=== PATIENT | female | born 1935 | race Caucasian/White ===

== ENCOUNTER 2016-11-27 22:05 | Observation (INO) | payer MEDICARE ==
[~2016-11-27] VITALS: Ht 170.2 cm; Wt 63.5 kg
[~2016-11-27 22:05] MED LIST: ASPI81TA82 PO; DILT120C49 PO; DOCU1CAP39 PO; MONT10TA2 PO; NORC7.5T PO; OMEG100037 PO; TAB-TAB PO; VITA-8 PO; VITA20003 PO; WALKER STANDARD
[2016-11-27 22:22] VITALS: BP 146/81; PULSE 74; RESP 18; TEMP 98.8; O2SAT 98
[2016-11-28] VITALS (10 sets, daily range): BP systolic 131–148; BP diastolic 51–70; PULSE 61–77; RESP 18–20; TEMP 97.9–98.1; O2SAT 95–99
[2016-11-28] MEDS ORDERED: LIDOCAINE HCL 1% PF 30 ML VIAL INFIL ONE (03:00)
[2016-11-28] MEDS ORDERED: SODIUM CHLORIDE 0.9% FLUSH 5 ML FLUSH IVF PRN ×2 (03:00→06:00)
[2016-11-28] MEDS ORDERED: TETANUS/DIPHTHERIA TOXOID ADULT 0.5 ML VIAL IM ONE (03:30)
[2016-11-28 03:40] LABS: AUTOMATED NEUTROPHIL # 6.3 TH/MM3 (1.8-7.7); BASOPHIL # 0.1 TH/MM3 (0-0.2); BASOPHIL % 0.7 % (0.0-2.0); EOSINOPHIL # 0.1 TH/MM3 (0-0.4); EOSINOPHIL % 1.5 % (0.0-4.0); HEMATOCRIT 39.4 % (35.0-46.0); HEMO FLAGS DIFF FINAL; LYMPH % 15.8 % (9.0-44.0); LYMPHOCYTE # 1.4 TH/MM3 (1.0-4.8); MEAN CELL VOLUME 94.2 FL (80.0-100.0); MEAN CORPUSCULAR HEMOGLOBIN 31.6 PG (27.0-34.0); MEAN CORPUSCULAR HGB CONC 33.5 % (32.0-36.0); MONO % 9.2 % (0.0-8.0); NEUT % 72.8 % (16.0-70.0); PLATELET COUNT 248 TH/MM3 (150-450); RED BLOOD COUNT 4.18 MIL/MM3 (4.00-5.30); RED CELL DISTRIBUTION WIDTH 12.9 % (11.6-17.2); WHITE BLOOD COUNT 8.7 TH/MM3 (4.0-11.0)
--- NOTE | 2016-11-28 03:43 | PD ---
HPI Chief Complaint: Fall Time Seen by Provider: 02:58 Travel History International Travel<30 days: No Contact w/Intl Traveler<30days: No Traveled to known affect area: No History of Present Illness HPI 81-year-old female presents to the emergency department by private transportation after syncopal episode. Patient states last evening she was in her usual state of health and then found herself on the floor with a scalp laceration. Patient is unsure how long she was unconscious. Patient states she had loss of bladder or bowel function. Patient had soiled her clothes. Patient was able to contact her neighbor who came to her assistance and EMS was called to help the patient up off the floor. A dressing was applied to the laceration site for the posterior scalp and patient was brought to the emergency department by private vehicle. Patient takes an aspirin and vitamins daily but takes no other medications. PFSH Past Medical History Narrative Medical Arthritis atrial fibrillation depression migraine partial colectomy appendectomy cholecystectomy upper lobectomy tonsillectomy left hip surgery alcohol use no tobacco use nursing notes reviewed Arthritis: Yes Atrial Fibrillation: Yes Anxiety: No Depression: Yes Cancer: No Cardiovascular Problems: No Diminished Hearing: Yes (SLIGHT HEARING LOSS) Endocrine: No Genitourinary: No Musculoskeletal: Yes Neurologic: Yes Psychiatric: Yes Reproductive: No Respiratory: No Migraines: Yes Menopausal: Yes Past Surgical History Abdominal Surgery: Yes (REMOVED 2 FT COLON) Appendectomy: Yes Cholecystectomy: Yes Pacemaker: No Thoracic Surgery: Yes (upper right lobe removed) Tonsillectomy: Yes Other Surgery: Yes (left hip) Social History Alcohol Use: Yes Tobacco Use: No Substance Use: No Allergies-Medications (Allergen,Severity, Reaction): Coded Allergies: Cipro (Unverified Allergy, Severe, 11/28/16) Levofloxacin (Unverified Allergy, Severe, 11/28/16) Reported Meds & Prescriptions Reported Meds & Active Scripts Active Reported Vitamin D (Cholecalciferol) 1,000 Unit Tab 2,000 Units PO DAILY Vitamin C (Ascorbic Acid) 1,000 Mg Tab 1,000 Mg PO Aspirin Children's (Aspirin) 81 Mg Chew 81 Mg CHEW DAILY Review of Systems Except as stated in HPI: all other systems reviewed are Neg General / Constitutional: No: Fever (Her), Chills HENT: No: Headaches, Congestion, Neck Stiffness, Neck Pain Cardiovascular: Positive: Syncope, No: Chest Pain or Discomfort Respiratory: No: Cough Gastrointestinal: No: Nausea, Vomiting, Abdominal Pain Genitourinary: No: Decreased Urinary Output Musculoskeletal: No: Myalgias, Arthralgias Skin: No Rash Neurologic: Positive: Syncope, No: Weakness, Dizziness Psychiatric: No: Anxiety, Depression Hematologic/Lymphatic: No: Lymph Node Enlargement Physical Exam Narrative GENERAL: Well-developed well-nourished female in acute distress no respiratory distress GCS 15 SKIN: Warm and dry. HEAD: Atraumatic. Normocephalic. 6 cm linear scar posterior scalp laceration no bony abnormality or soft tissue swelling/hematoma. EYES: Pupils equal and round. No scleral icterus. No injection or drainage. ENT: No nasal bleeding or discharge. Mucous membranes pink and moist. No hemotympanum bilaterally. NECK: Trachea midline. No JVD. No midline tenderness to direct palpation on the cervical spine no bony step-off. CARDIOVASCULAR: Regular rate and rhythm. RESPIRATORY: No accessory muscle use. Clear to auscultation. Breath sounds equal bilaterally. GASTROINTESTINAL: Abdomen soft, non-tender, nondistended. Hepatic and splenic margins not palpable. MUSCULOSKELETAL: Extremities without clubbing, cyanosis, or edema. No obvious deformities. NEUROLOGICAL: Awake and alert. No obvious cranial nerve deficits. Motor grossly within normal limits. Five out of 5 muscle strength in the arms and legs. Normal speech. PSYCHIATRIC: Appropriate mood and affect; insight and judgment normal. Data Data Last Documented VS Vital Signs Date Time Temp Pulse Resp B/P Pulse Ox O2 Delivery O2 Flow Rate FiO2 11/28/16 04:25 61 20 137/60 96 11/28/16 04:13 Nasal Cannula 2 11/27/16 22:22 98.8 Orders Basic Metabolic Panel (Bmp) (11/28/16 02:58) Complete Blood Count With Diff (11/28/16 02:58) Prothrombin Time / Inr (Pt) (11/28/16 02:58) Act Partial Throm Time (Ptt) (11/28/16 02:58) Type And Screen (11/28/16 02:58) Alcohol (Ethanol) (11/28/16 02:58) Urinalysis - C+S If Indicated (11/28/16 02:58) Ct Brain W/O Iv Contrast(Rout) (11/28/16 02:58) Ct Cerv Spine W/O Contrast (11/28/16 02:58) Iv Access Insert/Monitor (11/28/16 02:58) Ecg Monitoring (11/28/16 02:58) Oximetry (11/28/16 02:58) Oxygen Administration (11/28/16 02:58) Sodium Chloride 0.9% Flush (Ns Flush) (11/28/16 03:00) Electrocardiogram (11/28/16 ) Troponin I (11/28/16 02:58) Magnesium (Mg) (11/28/16 02:58) Wound Care (11/28/16 02:58) Lidocaine Pf 1% Inj (Xylocaine-Mpf 1% In (11/28/16 03:00) Tetanus/Diphtheria Tox Adult (Tetanus/Di (11/28/16 03:30) Place In Observation (11/28/16 ) Vital Signs (Adult) Q4H (11/28/16 05:50) Neuro Checks Q4H (11/28/16 05:50) Activity Oob With Assistance (11/28/16 05:50) Vp Talent Management / Telemetry .CONTINUOUS (11/28/16 05:50) Diet Heart Healthy (11/28/16 Breakfast) Sodium Chloride 0.9% Flush (Ns Flush) (11/28/16 06:00) Sodium Chloride 0.9% Flush (Ns Flush) (11/28/16 09:00) Pt Request For Service (11/28/16 05:50) Enoxaparin Inj (Lovenox Inj) (11/28/16 09:00) Naloxone Inj (Narcan Inj) (11/28/16 06:00) Admit Order (Ed Use Only) (11/28/16 ) ^ Saline Lock (11/28/16 05:51) Resp Oxygen Roldan C Titrat 1-4 L (11/28/16 ) ^ Notify Dr: Other (11/28/16 05:51) Sodium Chloride 0.9% Flush (Ns Flush) (11/28/16 09:00) Sodium Chloride 0.9% Flush (Ns Flush) (11/28/16 06:00) Aspirin Chew (Aspirin Chew) (11/28/16 09:00) Labs Laboratory Tests Test 11/28/16 03:30 White Blood Count 8.7 TH/MM3 Red Blood Count 4.18 MIL/MM3 Hemoglobin 13.2 GM/DL Hematocrit 39.4 % Mean Corpuscular Volume 94.2 FL Mean Corpuscular Hemoglobin 31.6 PG Mean Corpuscular Hemoglobin 33.5 % Concent Red Cell Distribution Width 12.9 % Platelet Count 248 TH/MM3 Mean Platelet Volume 8.2 FL Neutrophils (%) (Auto) 72.8 % Lymphocytes (%) (Auto) 15.8 % Monocytes (%) (Auto) 9.2 % Eosinophils (%) (Auto) 1.5 % Basophils (%) (Auto) 0.7 % Neutrophils # (Auto) 6.3 TH/MM3 Lymphocytes # (Auto) 1.4 TH/MM3 Monocytes # (Auto) 0.8 TH/MM3 Eosinophils # (Auto) 0.1 TH/MM3 Basophils # (Auto) 0.1 TH/MM3 CBC Comment DIFF FINAL Differential Comment Prothrombin Time 11.0 SEC Prothromb Time International 1.0 RATIO Ratio Activated Partial 27.7 SEC Thromboplast Time Sodium Level 135 MEQ/L Potassium Level 3.8 MEQ/L Chloride Level 98 MEQ/L Carbon Dioxide Level 26.0 MEQ/L Anion Gap 11 MEQ/L Blood Urea Nitrogen 7 MG/DL Creatinine 0.61 MG/DL Estimat Glomerular Filtration 94 ML/MIN Rate Random Glucose 85 MG/DL Calcium Level 8.7 MG/DL Magnesium Level 1.6 MG/DL Troponin I 0.02 NG/ML Ethyl Alcohol Level 119 MG/DL Blood Type O POSITIVE Antibody Screen NEGATIVE MDM Medical Decision Making Medical Screen Exam Complete: Yes Emergency Medical Condition: Yes Medical Record Reviewed: Yes Interpretation(s) EKG: Normal sinus rhythm rate 69 first-degree AV block no acute ST elevation or injury pattern change noted nonspecific T-wave septally with age-indeterminate QS septally CBC & BMP Diagram 11/28/16 03:[address] 11/28/16257 Signed Impressions: Service Date/Time: Monday, November 28, 2016 03:55 - CONCLUSION: No significant change has occurred. Neil Queen MD Cervical Spine CT 11/28/16257 Signed Impressions: Service Date/Time: Monday, November 28, 2016 03:55 - CONCLUSION: No fracture or listhesis. Neil Queen MD Serum alcohol: 119, elevated Troponin I: 0.02 Differential Diagnosis Syncope, arrhythmia, seizure, alcohol consumption/intoxication, electrolyte disturbance, ACS, ICH, CHI, laceration Narrative Course Patient placed on monitor IV access obtained specimens collected and sent for resulting tetanus status updated Imaging studies resulted CT brain noncontrast reveals no bleed or acute intracranial process or fracture; CT cervical spine reveals no acute bony injury Lab values grossly within normal range except for serum alcohol of 119, elevated Laceration repaired with jasmyne Plan will be to admit patient for observation to vomit monitor for arrhythmia serial enzymes and require EEG Procedures Procedure Narrative LACERATION LOCATION: Posterior scalp LENGTH: 6 cm NUMBER OF STITCHES/JASMYNE: 9 REPAIR: The area of the laceration was prepped with Betadine and sterilely draped. The laceration was infiltrated with 1% lidocaine plain. The wound was copiously irrigated and explored without evidence of foreign body, tendon injury or neurovascular injury. The wound was closed using jasmyne. This was a single layer repair. A sterile dressing was applied. The patient was advised to keep the dressing clean and dry. Patient tolerated the procedure well. Tetanus status updated EKG Prior to Arrival: No Physician Communication Physician Communication call placed to [facility] service for OBS admission Diagnosis Primary Impression: Syncope Qualified Code: R55 - Syncope, unspecified syncope type Additional Impressions: Closed head injury Qualified Code: S09.90XA - Closed head injury, initial encounter Occipital scalp laceration Qualified Code: S01.01XA - Occipital scalp laceration, initial encounter Alcohol ingestion Admitting Information Admitting Physician Requests: Observation Celi Richardson MD Nov 28, 2016 03:43
[2016-11-28 03:49] LABS: POTASSIUM 3.8 MEQ/L (3.5-5.1)
[2016-11-28 03:52] LABS: APTT (PATIENT) 27.7 SEC (24.3-30.1); MAGNESIUM 1.6 MG/DL (1.5-2.5)
--- NOTE | 2016-11-28 04:26 | RADHPO ---
EXAM DATE/TIME: 11/28/2016 03:55 [facility] COMPARISON: CT BRAIN W/O CONTRAST, February 18, 2015, 12:38. INDICATIONS : Trauma. Fall. Laceration back of head. RADIATION DOSE: 60.12 CTDIvol (mGy) MEDICAL HISTORY : None SURGICAL HISTORY : Lobectomy. Right shoulder reconstruction. ENCOUNTER: Initial ACUITY: 1 day PAIN SCALE: 0/10 LOCATION: Bilateral occipital TECHNIQUE: Multiple contiguous axial images were obtained of the head. Using automated exposure control and adj ustment of the mA and/or kV according to patient size, radiation dose was kept as low as reasonably a chievable to obtain optimal diagnostic quality images. FINDINGS: There is atrophy and patchy white matter disease moderate severity. No signs of acute infarct, hemorr bozena, or mass. No fractures. CONCLUSION: No significant change has occurred. Neil Queen MD on November 28, 2016 at 4:24 Board Certified Radiologist. This report was verified electronically.
[2016-11-28] MEDS ORDERED: VITA10007 PO (04:34)
[2016-11-28] MEDS ORDERED: ASPI81CH7 CHEW (04:34)
[2016-11-28] MEDS ORDERED: VITA100064 PO (04:34)
--- NOTE | 2016-11-28 04:37 | RADHPO ---
EXAM DATE/TIME: 11/28/2016 03:55 [facility] COMPARISON: CHEST SINGLE AP, March 12, 2016, 8:48. INDICATIONS : Trauma. Fall. Laceration back of head. RADIATION DOSE: 22.78 CTDIvol (mGy) MEDICAL HISTORY : None SURGICAL HISTORY : Lobectomy. Right shoulder reconstruction. ENCOUNTER: Initial ACUITY: 1 day PAIN SCALE: 0/10 LOCATION: Bilateral neck TECHNIQUE: Volumetric scanning of the cervical spine was performed. Multiplanar reconstructions in the sagittal, coronal and oblique axial planes were performed. Using automated exposure control and adjustment o f the mA and/or kV according to patient size, radiation dose was kept as low as reasonably achievable to obtain optimal diagnostic quality images. FINDINGS: There is moderate multilevel facet hypertrophy. Severe disc space narrowing at C5-6 and C6-7 with mul tilevel osteophytosis. No compression deformity or prevertebral soft tissue swelling. The odontoid pr ocess is intact. Multilevel uncovertebral hypertrophy. At C5-6 mild canal narrowing secondary to mild diffuse disc osteophyte complex. No fractures are seen. There are emphysematous changes and fibrotic changes at the apices. Post surgical changes right lung apex. CONCLUSION: No fracture or listhesis. Neil Queen MD on November 28, 2016 at 4:33 Board Certified Radiologist. This report was verified electronically.
[2016-11-28] MEDS ORDERED: NALOXONE HCL 0.4 MG/ML AMP IV PRN (06:00)
[2016-11-28] MEDS ORDERED: SODIUM CHLORIDE 0.9% FLUSH 5 ML FLUSH FLUSH PRN (06:00)
[2016-11-28 06:07] LABS: BLOOD, URINE SMALL (NEG); GLUCOSE,URINE NEG (NEG); KETONE, URINE NEG (NEG); NITRITE,URINE NEG (NEG)
[2016-11-28 06:13] LABS: METHOD OF COLLECTION CLEAN CATCH; RBC, URINE 0-3 /hpf (0-3); SQUAMOUS EPITHELIAL CELL URINE 0-5 /hpf (0-5); URINE COLOR STRAW (YELLW/STRAW)
[2016-11-28 06:14] LABS: COMMENT (UR) CULT NOT INDICATED; CULTURE IF INDICATED CULT NOT INDICATED
[2016-11-28] MEDS ORDERED: ASPIRIN 81 MG CHEW TAB CHEW SCH (09:00)
[2016-11-28] MEDS ORDERED: SODIUM CHLORIDE 0.9% FLUSH 5 ML FLUSH IVF SCH (09:00)
[2016-11-28] MEDS ORDERED: SODIUM CHLORIDE 0.9% FLUSH 5 ML FLUSH FLUSH SCH (09:00)
[2016-11-28] MEDS ORDERED: ENOXAPARIN SODIUM 40 MG/0.4 ML SYRINGE SQ SCH (09:00)
[2016-11-28] MEDS ORDERED: ACETAMINOPHEN 325 MG TAB PO PRN (11:00)
--- NOTE | 2016-11-28 16:05 | HHI.HP ---
[facility] Brooklynn Abdi MD Admission Diagnosis Syncope; h/o afib; alcohol ingestion Diagnoses: (1) Syncope Diagnosis: Principal (2) Alcohol intoxication Diagnosis: Principal Chief Complaint: fell Travel History International Travel<30 Days: No Contact w/Intl Traveler <30 Da: No Traveled to Known Affected Are: No History of Present Illness 81-year-old female with history of lung cancer, post procedural A. fib , and arthritis presents with syncope. Patient states she was walking in the hood last night and she fell. Denies tripping. Admits to loss of consciousness. She denies any confusion afterward. She denies any dizziness or lightheadedness prior to syncope. She states this happened twice before and was not associated with alcohol use, but states she had 2 glasses of wine last night. Patient was noted to have an alcohol level of 119. Patient denies any chest pain or shortness of breath associated with syncope. Denies any recent fevers, chills, or cough. She has a history of postprocedural A. fib for which she was evaluated by Dr. Allen. She last saw Dr. Allen 6 months ago and has had a prior stress test. She states she is supposed to see him next week. Review of Systems Other ROS 10 negative unless otherwise indicated positive in history of present illness. Past Family Social History Past Medical History Atrial fibrillation Lung cancer 2014 Depression Migraine Arthritis Past Surgical History Partial colectomy Appendectomy Cholecystectomy R upper lobectomy tonsillectomy left hip replacement Reported Medications Vitamin D (Cholecalciferol) 1,000 Unit Tab 2,000 Units PO DAILY Vitamin C (Ascorbic Acid) 1,000 Mg Tab 1,000 Mg PO Aspirin Children's (Aspirin) 81 Mg Chew 81 Mg CHEW DAILY Allergies: Coded Allergies: Cipro (Unverified Allergy, Severe, 11/28/16) Levofloxacin (Unverified Allergy, Severe, 11/28/16) Family History Mother: Breast cancer. Father: in an accident. Social History Patient states she smoked cigarettes for 25 years, quit 10 years ago. Patient states she drank 2 glasses of wine last night. Physical Exam Vital Signs Vital Signs Date Time Temp Pulse Resp B/P Pulse Ox O2 Delivery O2 Flow Rate FiO2 11/28/16 12:45 74 18 138/51 98 Room Air 11/28/16 12:01 18 11/28/16 09:39 67 18 147/67 96 Room Air 11/28/16 09:28 65 145/64 142/69 147/67 11/28/16 07:19 97.9 77 18 135/59 96 Room Air 11/28/16 07:14 78 18 96 Room Air 11/28/16 06:13 98.1 68 20 131/64 95 11/28/16 05:57 96 Nasal Cannula 2.00 11/28/16 04:25 61 20 137/60 96 11/28/16 04:17 66 20 97 11/28/16 04:13 65 20 137/60 97 11/28/16 04:13 98 Nasal Cannula 2 11/28/16 03:31 68 20 148/67 98 11/28/16 02:30 66 20 141/70 99 11/27/16 22:22 98.8 74 18 146/81 98 Physical Exam GENERAL: This is a pleasant well-nourished, well-developed patient, in no apparent distress. SKIN: Mild ecchymosis noted to the right elbow region. HEAD: Normocephalic. EYES: No scleral icterus. No injection or drainage. NECK: Trachea midline. CARDIOVASCULAR: Regular rate and rhythm. RESPIRATORY: Clear to auscultation. Breath sounds equal bilaterally. No wheezes , rales, or rhonchi. GASTROINTESTINAL: Abdomen soft, non-tender, nondistended. MUSCULOSKELETAL: No lower extremity edema bilaterally. NEUROLOGICAL: Awake and alert. Motor grossly within normal limits. Normal speech. PSYCHIATRIC: Normal mood and affect. Insight and judgement normal. Laboratory Laboratory Tests Test 11/28/16 11/28/16 03:30 05:55 White Blood Count 8.7 Red Blood Count 4.18 Hemoglobin 13.2 Hematocrit 39.4 Mean Corpuscular Volume 94.2 Mean Corpuscular Hemoglobin 31.6 Mean Corpuscular Hemoglobin 33.5 Concent Red Cell Distribution Width 12.9 Platelet Count 248 Mean Platelet Volume 8.2 Neutrophils (%) (Auto) 72.8 Lymphocytes (%) (Auto) 15.8 Monocytes (%) (Auto) 9.2 Eosinophils (%) (Auto) 1.5 Basophils (%) (Auto) 0.7 Neutrophils # (Auto) 6.3 Lymphocytes # (Auto) 1.4 Monocytes # (Auto) 0.8 Eosinophils # (Auto) 0.1 Basophils # (Auto) 0.1 CBC Comment DIFF FINAL Differential Comment Prothrombin Time 11.0 Prothromb Time International 1.0 Ratio Activated Partial 27.7 Thromboplast Time Sodium Level 135 Potassium Level 3.8 Chloride Level 98 Carbon Dioxide Level 26.0 Anion Gap 11 Blood Urea Nitrogen 7 Creatinine 0.61 Estimat Glomerular Filtration 94 Rate Random Glucose 85 Calcium Level 8.7 Magnesium Level 1.6 Troponin I 0.02 Ethyl Alcohol Level 119 Blood Type O POSITIVE Antibody Screen NEGATIVE Urine Collection Type CLEAN CATCH Urine Color STRAW Urine Turbidity CLEAR Urine pH 6.0 Urine Specific [place] 1.004 Urine Protein NEG Urine Glucose (UA) NEG Urine Ketones NEG Urine Occult Blood SMALL Urine Nitrite NEG Urine Bilirubin NEG Urine Leukocyte Esterase NEG Urine RBC 0-3 Urine WBC Urine Squamous Epithelial 0-5 Cells Microscopic Urinalysis Comment CULT NOT INDICATED Result Diagram: 11/28/1632911/28/16329 Imaging Last Impressions Head CT 11/28/16257 Signed Impressions: Service Date/Time: Monday, November 28, 2016 03:55 - CONCLUSION: No significant change has occurred. Neil Queen MD Cervical Spine CT 11/28/16257 Signed Impressions: Service Date/Time: Monday, November 28, 2016 03:55 - CONCLUSION: No fracture or listhesis. Neil Queen MD Assessment and Plan Assessment and Plan 81-year-old female with: Syncope: Asymptomatic prior to syncope. Patient had a head laceration which was repaired in the ED. Troponin negative. CBC and BMP unremarkable. UA negative. EtOH elevated which is likely the cause of patient's syncope. -Head and cervical spine CTs personally reviewed without acute abnormality. Afebrile with good oxygen saturation. -EKG personally interpreted with sinus rhythm; nonspecific septal T wave changes present; V2 changes not apparent on prior EKG on 03/12/16, but patient admits to having previous stress test. -2014 Echo with EF of 60-65%. -Orthostatics negative -Telemetry, vitals -PT: Mobilized 320 feet with walker; has walker and cane at home. -Patient anxious to be discharged. Spoke with Dr. Allen who would like to see the patient is office tomorrow and new echo can be performed at that time. Alcohol intoxication: EtOH 119. -Patient counseled on decreasing alcohol intake. She states may stop all together. DVT prevention: SCDs. Written by Elly Chahal PA-C acting as scribe for Dr. Serrano on 11/28/16 at 1550.~ The documentation accurately reflects the work and decisions performed face-to- face by me Dr. Serrano on 11/28/16 at ~1550. Discharge disposition: Home in stable condition. Diet: Heart healthy Activity: Regular Medications: Resume home medication. Follow-up: Dr. Allen salesperson [employer] tomorrow. Discussed Condition With Dr. Allen, salesperson [employer]. Problem Qualifiers (1) Syncope: Qualified Code: R55 - Syncope, unspecified syncope type Elly Chahal Nov 28, 2016 16:04
--- NOTE | 2016-11-28 17:43 | EKG ---
Date Performed: 11/28/2016 Time Performed: 03:36:26 PTAGE: 81 years EKG: Sinus rhythm with borderline 1st degree A-V block Possible septal infarct - age undetermined Since previous josh ng, no significant change noted Abnormal ECG PREVIOUS TRACING : 03/12/2016 09.05 DOCTOR: Brandon Allen Interpretating Date/Time 11/28/2016 17:41:25
--- NOTE | 2016-11-29 08:14 | MG ---
cc: DULCE SALEH Lab No: [id number] Date: 11/29/2016 Age: 81 Sex: F Race: A 81-year-old woman, hyperventilation not performed. Some white matter disease, syncope, depression and alcohol, lidocaine, Lovenox. Diffuse beta rhythms are seen which could be a medication effect on a background of 12 to 14 Hz posterior and diffuse rhythm. Photic stimulation was performed without significant posterior driving. No epileptiform or seizure activity is noted. There were no hemisphere asymmetries. The patient was noted to be snoring and does reach stage II sleep. IMPRESSION Normal awake and stage II sleep EEG. There is no evidence for focal or diffuse abnormality. The patient was noted to be snoring. Sleep apnea could be investigated in the patient if thought appropriate. MD ENDY Hirsch/TLL /7:53 AM /8:09 AM
== END 2016-11-28 16:24 | disposition home or self-care (01) ==
LOC: PHED 22:05 → PHEDA 11-28 05:53
PROVIDERS: ADMIT Hospitalist; ATTEND Hospitalist
DX: R55 Syncope and collapse (principal); S01.01XA Laceration without foreign body of scalp, initial encounter; S06.2X9A Diffuse traumatic brain injury with loss of consciousness of unspecified duration, initial encounter; F10.129 Alcohol abuse with intoxication, unspecified; I48.91 Unspecified atrial fibrillation; M19.90 Unspecified osteoarthritis, unspecified site; F32.9 Major depressive disorder, single episode, unspecified; G43.909 Migraine, unspecified, not intractable, without status migrainosus; W18.39XA Other fall on same level, initial encounter; Y92.009 Unspecified place in unspecified non-institutional (private) residence as the place of occurrence of the external cause; Z85.118 Personal history of other malignant neoplasm of bronchus and lung; Z79.82 Long term (current) use of aspirin
CPT/HCPCS: 12002; 70450; 72125; 80048; 80320; 81001; 83735; 84484; 85025; 85610; 85730; 86850; 86900; 86901; 90471; 90714; 93005; 95819; 97162; 99285; G0378; G8987; G8988; J1650